=== PATIENT | female | born 1965 | race Caucasian/White ===

== ENCOUNTER 2020-02-28 13:41 | Emergency (ER) | payer MEDICAID, OTHER ==
[~2020-02-28] VITALS: Ht 172.7 cm; Wt 74.0 kg
[~2020-02-28 13:41] MED LIST: ACET-704 PO; NEO/5DRO EACHEYE
[2020-02-28 13:56] VITALS: BP 121/68
--- NOTE | 2020-02-28 14:07 | PHYS DOC ---
Past History Past Medical History: Asthma, Diabetes, HIV Past Surgical History: Cholecystectomy, Smoking: Cigarettes, Less than 1pk/day Alcohol Use: Occasionally Drug Use: Methadone General Adult EDM: Chief Complaint: KNEE INJURY HPI: HPI: Patient is a 54-year-old female with a history of HIV who presents to the ED with sharp left knee pain for the past 3 weeks. Patient states that pain has been worsening over time and is aggravated with extension of the knee. Patient has been taking Aleve and muscle creams without any relief. She reports that her left knee pain now radiates up her leg to her left hip. Patient also complains of left elbow pain which is located on her medial side. Pain is worse with pronation and extension of arm. Denies any other symptoms, sensory issues, or numbness or tingling. Review of Systems: Review of Systems: Constitutional: Denies fever or chills Eyes: Denies redness or eye pain HENT: Denies nasal congestion or sore throat Respiratory: Denies cough or shortness of breath Cardiovascular: Denies chest pain or palpitations GI: Denies abdominal pain, nausea, or vomiting : Denies dysuria or hematuria Musculoskeletal: Reports left knee pain, reports left elbow pain Integument: Denies rash or skin lesions Neurologic: Denies headache, focal weakness or sensory changes Complete systems were reviewed and found to be within normal limits, except as documented in this note. Allergies: Allergies: Allergies Coded Allergies Type Severity Reaction Last Updated Verified Penicillins Allergy Intermediate Hives 06/20/15 No Physical Exam: PE: Constitutional: Well developed, well nourished, no acute distress, non-toxic appearance HENT: Normocephalic, atraumatic Eyes: PERRL, EOMI, conjunctiva normal, no discharge Neck: Normal range of motion, no tenderness, supple Lungs & Thorax: No respiratory distress, equal chest rise and fall Abdomen: Soft, no tenderness Skin: Warm, dry, no erythema, no rash Back: No tenderness, no CVA tenderness Extremities: With palpation on left knee, no effusion, range of motion limited due to pain. Unsteady gait due to pain. Left elbow pain worse with extension located over medial epicondyle, Neurologic: Alert and oriented X 3, normal motor function, normal sensory function, no focal deficits noted Psychologic: Affect normal, judgment normal Radiology/Procedures: Radiology/Procedures: PROCEDURE: KNEE LEFT 3V Examination: KNEE LEFT 3V History: Reason: pain / Spl. Instructions: / History: Comparison/Correlation: None Findings: Total of 3 images of the left knee were obtained. Joint spaces are normal. No fracture or bone destruction. Soft tissues unremarkable. Evaluation is slightly limited due to overlying artifact. No joint effusion. No definite degenerative change. Impression: No suspicious process. Electronically signed by: Miles Humphrey MD (02/28/2020 2:31 PM) [place] PROCEDURE: ELBOW LEFT 3V Examination: ELBOW LEFT 3V History: Reason: pain / Spl. Instructions: / History: Comparison/Correlation: None Findings: Total of 3 images of the left elbow were obtained. Joint spaces are normal. No fat pad displacement identified to suggest underlying elbow joint effusion. No displaced fracture or bone destruction. Soft tissues are unremarkable. Impression: Normal left elbow x-ray exam. Electronically signed by: Miles Humphrey MD (02/28/2020 2:31 PM) [place] Course & Med Decision Making: Course & Med Decision Making Pertinent Imaging studies reviewed. (See chart for details) Patient is a 54 y/o female who presents to the ED with worsening left knee pain and left elbow pain. Knee and elbow X-rays were negative, Sukhjinder wrap. Patient stable for discharge with outpatient follow-up with PCP. Discussed findings and plan with patient, who acknowledges understanding and agreement. Olya Disclaimer: Olya Disclaimer: This electronic medical record was generated, in whole or in part, using a voice recognition dictation system. Departure Departure: Impression: Primary Impression: Elbow pain, left Additional Impression: Knee pain, left Qualified Codes: M25.562 - Pain in left knee Disposition: 01 DC HOME SELF CARE/HOMELESS Condition: STABLE Referrals: [facility] ESCOBAR (PCP) Patient Instructions: Elastic Bandage and RICE, Elbow Exercises, Generic- SportsMed, Knee Pain, [id number], Sciatica, [id number] Additional Instructions: May also over the counter Ibuprofen or Naproxen for pain. Please follow closely with Dr. Jono Silva (pain management) for further evaluation and treatment: Address: [address] [place] [address] Scripts Orphenadrine Citrate (ORPHENADRINE CITRATE) 100 Mg Tablet.er 1 TAB PO BID PRN for MUSCLE PAIN, #14 TAB 0 Refills Prov: ACOSTA COATS DO 02/28/20 Hydrocodone Bit/Acetaminophen (NORCO 5-325 TABLET) 1 Each Tablet 0.5-1 TAB PO Q6HRS PRN for PAIN, #10 TAB Prov: ACOSTA COATS DO 02/28/20 ACOSTA COATS DO Feb 28, 2020 14:06
[2020-02-28] MEDS ORDERED: KETOROLAC 30 MG/ML VIAL. IM ONE (14:15)
--- NOTE | 2020-02-28 14:33 | RAD ---
Examination: ELBOW LEFT 3V History: Reason: pain / Spl. Instructions: / History: Comparison/Correlation: None Findings: Total of 3 images of the left elbow were obtained. Joint spaces are normal. No fat pad displacement identified to suggest underlying elbow joint effusion. No displaced fracture or bone destruction. Soft tissues are unremarkable. Impression: Normal left elbow x-ray exam. Electronically signed by: Miles Humphrey MD (02/28/2020 2:31 PM) [facility]
--- NOTE | 2020-02-28 14:34 | RAD ---
Examination: KNEE LEFT 3V History: Reason: pain / Spl. Instructions: / History: Comparison/Correlation: None Findings: Total of 3 images of the left knee were obtained. Joint spaces are normal. No fracture or bone destruction. Soft tissues unremarkable. Evaluation is slightly limited due to overlying artifact. No joint effusion. No definite degenerative change. Impression: No suspicious process. Electronically signed by: Miles Humphrey MD (02/28/2020 2:31 PM) [facility]
[2020-02-28] MEDS ORDERED: HYDR-3165 PO (15:29)
[2020-02-28] MEDS ORDERED: ORPH-16 PO (15:29)
== END 2020-02-28 15:40 | disposition home or self-care (01) ==
LOC: ER 13:41
DX: M25.562 Pain in left knee (principal); M25.522 Pain in left elbow; J45.909 Unspecified asthma, uncomplicated; E11.9 Type 2 diabetes mellitus without complications; F17.210 Nicotine dependence, cigarettes, uncomplicated; Z88.0 Allergy status to penicillin
CPT/HCPCS: 73080; 73562; 96372; 99284; J1885